=== PATIENT | female | born 2000 | race African-American/Black ===

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

== ENCOUNTER 2021-10-24 23:15 | Emergency (ER) | payer MEDICAID, OTHER ==
[~2021-10-24] VITALS: Ht 149.9 cm; Wt 77.2 kg
[~2021-10-24 23:15] MED LIST: CETI-89 PO
[2021-10-24 23:30] VITALS: BP 104/49
[2021-10-25 00:15] LABS: BASOPHILS % 0.3 % (0.0-2.0); HEMATOCRIT. 34.7 % (36.0-48.0); HEMOGLOBIN. 11.3 g/dL (12.0-16.0); LYMPHOCYTES % 16.1 % (20.0-50.0); MEAN CORPUSCULAR HEMOGLOBIN 30.9 pg (28.0-32.0); MEAN CORPUSCULAR VOLUME 94.8 fL (81.0-99.0); MEAN PLATELET VOLUME 8.5 fl (7.4-10.4); MONOCYTES % 5.5 % (2.0-8.0); NEUTROPHILS % 71.1 % (40.0-76.0); PLATELET 246 x1000/uL (130-400); RED BLOOD CELL COUNT 3.66 mill/uL (4.2-5.4); RED CELL DISTRIBUTION WIDTH 13.7 % (11.6-14.6)
[2021-10-25 00:23] LABS: CHLORIDE 105 mEq/L (98-107)
[2021-10-25] MEDS ORDERED: ACETAMINOPHEN 325MG TABLET PO STA (02:02)
== END 2021-10-25 04:07 | disposition left against medical advice (07) ==
LOC: ER 23:51
DX: O26.892 Other specified pregnancy related conditions, second trimester (principal); R20.0 Anesthesia of skin; Z3A.24 24 weeks gestation of pregnancy
CPT/HCPCS: 36415; 80048; 85025; 99283

== ENCOUNTER 2022-05-03 05:58 | Inpatient (IN) | payer MEDICAID, OTHER ==
[~2022-05-03] VITALS: Ht 172.7 cm; Wt 74.4 kg
[2022-05-03] MEDS ORDERED: METHYLPREDNISOLONE SOD SUCC 125 MG/2 ML VIAL IV STA (06:12)
[2022-05-03] MEDS ORDERED: SODIUM CHLORIDE 0.9% 1,000 ML IV ONE (07:45)
[2022-05-03] MEDS ORDERED: IPRATROPIUM BROMIDE (0.02%) 0.5MG/2.5ML NEB HHN STA (08:11)
[2022-05-03] MEDS ORDERED: ALBUTEROL (0.083%) 2.5MG/3ML NEB HHN STA (08:11)
[2022-05-03 12:11] LABS: HEMATOCRIT. 38.1 % (36.0-48.0); HEMOGLOBIN. 12.5 g/dL (12.0-16.0); MEAN CORPUSCULAR HEMOGLOBIN 29.8 pg (28.0-32.0); MEAN CORPUSCULAR VOLUME 91.2 fL (81.0-99.0); PLATELET 286 x1000/uL (130-400); RED BLOOD CELL COUNT 4.18 mill/uL (4.2-5.4); RED CELL DISTRIBUTION WIDTH 14.2 % (11.6-14.6)
[2022-05-03 12:29] LABS: PLATELET ESTIMATE NORMAL
[2022-05-03 12:30] LABS: CHLORIDE 105 mEq/L (98-107)
[2022-05-03 12:47] LABS: ETHANOL BLOOD < 10 mg/dL
[2022-05-03] MEDS ORDERED: ALBUTEROL (0.083%) 2.5MG/3ML NEB HHN ONE (13:15)
[2022-05-03 17:10] VITALS: BP 119/69
[2022-05-03] MEDS ORDERED: IPRATROPIUM/ALBUTEROL 0.5-3(2.5)MG/3ML NEB HHN PRN (17:30)
[2022-05-03] MEDS: IPRATROPIUM BROMIDE (0.02%) 0.5MG/2.5ML NEB HHN SCH ×2 (17:47→20:52)
[2022-05-03] MEDS ORDERED: BUDESONIDE 0.5MG/2ML NEB HHN SCH (18:00)
[2022-05-03] MEDS: METHYLPREDNISOLONE SOD SUCC 40 MG/ML VIAL IV SCH (18:07)
[2022-05-03] MEDS ORDERED: LEVOFLOXACIN 500MG PREMIX 100 ML IV SCH (18:30)
[2022-05-03 20:00] VITALS: BP 109/67
[2022-05-03] MEDS ORDERED: IPRATROPIUM/ALBUTEROL 0.5-3(2.5)MG/3ML NEB HHN SCH (20:00)
[2022-05-03] MEDS: OSELTAMIVIR 75MG CAPSULE PO SCH (21:18)
[2022-05-04] VITALS: BP 123/73
[2022-05-04] MEDS: IPRATROPIUM BROMIDE (0.02%) 0.5MG/2.5ML NEB HHN SCH ×2 (00:43→04:25)
[2022-05-04] MEDS: METHYLPREDNISOLONE SOD SUCC 40 MG/ML VIAL IV SCH ×2 (01:12→10:13)
[2022-05-04 04:00] VITALS: BP 103/62
[2022-05-04 08:00] VITALS: BP 102/59
[2022-05-04] MEDS: OSELTAMIVIR 75MG CAPSULE PO SCH (10:26)
[2022-05-04 12:00] VITALS: BP 102/64
== END 2022-05-04 14:45 | disposition left against medical advice (07) | DRG 133 ==
LOC: ER 05:58 → EDBEDREQ 10:49 → 8WST 13:33 → EDBEDREQTM 13:36 → EDBEDREQ 13:36 → ENRESERV 15:09
PROVIDERS: ADMIT Internal Medicine; ATTEND Internal Medicine
DX: J96.00 Acute respiratory failure, unspecified whether with hypoxia or hypercapnia (principal); J45.901 Unspecified asthma with (acute) exacerbation; J10.1 Influenza due to other identified influenza virus with other respiratory manifestations; F12.90 Cannabis use, unspecified, uncomplicated; Z20.822 Contact with and (suspected) exposure to COVID-19; Z53.29 Procedure and treatment not carried out because of patient's decision for other reasons; Z91.010 Allergy to peanuts
CPT/HCPCS: 36415; 71045; 80053; 80320; 84484; 85025; 85379; 87426; 87804; 93005; 99285; C9803; J1956; J2920; J2930; J7030; J7626; G0480

== ENCOUNTER 2023-10-16 23:25 | Emergency (ER) | payer MEDICAID, OTHER ==
[~2023-10-16] VITALS: Ht 167.6 cm; Wt 91.0 kg
[~2023-10-16 23:25] MED LIST changes: -CETI-89 PO; +FLUT1DIS3 INH; +P20 PO; +TC1U15 TP
[2023-10-16] MEDS: PREDNISONE 20MG TABLET PO ONE (23:50)
[2023-10-16] MEDS: ACETAMINOPHEN 325MG TABLET PO ONE (23:50)
[2023-10-17 00:04] VITALS: TEMP 97.8
[2023-10-17 00:49] VITALS: PULSE 116; RESP 17; O2SAT 96
[2023-10-17] MEDS: ALBUTEROL (0.083%) 2.5MG/3ML NEB HHN ONE (00:49)
[2023-10-17] MEDS: IPRATROPIUM BROMIDE (0.02%) 0.5MG/2.5ML NEB HHN STA (00:49)
[2023-10-17] MEDS ORDERED: P20 MT (00:50)
[2023-10-17] MEDS ORDERED: ALBU6.7H15 INH (00:50)
[2023-10-17 02:00] VITALS: BP 114/52; PULSE 99; RESP 16
[2023-10-17] MEDS ORDERED: P50 MT (17:07)
== END 2023-10-17 03:02 | disposition home or self-care (01) ==
LOC: ER 23:25
DX: J45.901 Unspecified asthma with (acute) exacerbation (principal)
CPT/HCPCS: 81025; 94640; 99285; J7512; Z7610 ×2

== ENCOUNTER 2023-10-17 15:19 | Emergency (ER) | payer OTHER ==
[~2023-10-17] VITALS: Ht 149.9 cm; Wt 75.0 kg
[~2023-10-17 15:19] MED LIST changes: +ALBU6.7H15 INH; +P20 MT
[2023-10-17 15:23] VITALS: BP 123/63; TEMP 98.7; O2SAT 96
[2023-10-17] MEDS: PREDNISONE 20MG TABLET PO STA (15:34)
[2023-10-17 16:08] VITALS: PULSE 100; RESP 20
[2023-10-17] MEDS: ALBUTEROL (0.083%) 2.5MG/3ML NEB HHN STA (16:08)
[2023-10-17] MEDS: IPRATROPIUM BROMIDE (0.02%) 0.5MG/2.5ML NEB HHN STA (16:09)
[2023-10-17] MEDS ORDERED: P50 MT (17:07)
== END 2023-10-17 17:55 | disposition home or self-care (01) ==
LOC: ER 15:19
DX: J45.901 Unspecified asthma with (acute) exacerbation (principal)
CPT/HCPCS: 71045; 94644; 99285; J7512; Z7610 ×3; 94640

== ENCOUNTER 2024-04-12 07:08 | Emergency (ER) | payer MEDICAID ==
[~2024-04-12] VITALS: Ht 149.9 cm; Wt 74.0 kg
[~2024-04-12 07:08] MED LIST changes: +P50 MT
[2024-04-12 08:27] VITALS: PULSE 100; RESP 18; O2SAT 94
[2024-04-12] MEDS: ALBUTEROL (0.083%) 2.5MG/3ML NEB HHN STA (08:27)
[2024-04-12] MEDS: IPRATROPIUM BROMIDE (0.02%) 0.5MG/2.5ML NEB HHN STA (08:27)
[2024-04-12 08:43] LABS: HEMATOCRIT. 37.9 % (36.0-48.0); HEMOGLOBIN. 12.5 g/dL (12.0-16.0); MEAN CORPUSCULAR HEMOGLOBIN 30.1 pg (28.0-32.0); MEAN CORPUSCULAR HGB CONC 33.1 g/dL (31.0-37.0); MEAN CORPUSCULAR VOLUME 91.1 fL (81.0-99.0); MEAN PLATELET VOLUME 7.8 fl (7.4-10.4); PLATELET 299 x1000/uL (130-400); RED BLOOD CELL COUNT 4.17 mill/uL (4.2-5.4); RED CELL DISTRIBUTION WIDTH 12.8 % (11.6-14.6); WHITE BLOOD COUNT 7.5 x1000/uL (4.5-11.0)
[2024-04-12 08:53] LABS: CHLORIDE 109 mEq/L (98-107); DIFFERENTIAL COMMENT 1; POTASSIUM 3.5 mEq/L (3.5-5.1); SODIUM 140 mEq/L (136-145)
[2024-04-12] MEDS: PREDNISONE 20MG TABLET PO STA (08:53)
[2024-04-12 08:54] LABS: CARBON DIOXIDE 26 mEq/L (21-32)
[2024-04-12 08:59] LABS: CREATININE 0.7 mg/dL (0.6-1.0); GLUCOSE 95 mg/dL (70-105); UREA NITROGEN BLOOD 13 mg/dL (9-23)
[2024-04-12 09:16] LABS: TROPONIN I HIGH SENSITIVITY < 4 ng/L (3.0-34)
[2024-04-12 10:02] LABS: PLATELET ESTIMATE NORMAL
[2024-04-12] MEDS ORDERED: P50 PO (10:26)
[2024-04-12 11:07] VITALS: BP 127/65; PULSE 92; RESP 18; TEMP 36.89184; O2SAT 96
== END 2024-04-12 11:09 | disposition home or self-care (01) ==
LOC: ER 07:08
DX: J45.901 Unspecified asthma with (acute) exacerbation (principal); Z79.899 Other long term (current) drug therapy; Z91.010 Allergy to peanuts
CPT/HCPCS: 80048; 85025; 84484; 36415; 71045; 93005; 94644; 99285; J7512; Z7610; 94640

== ENCOUNTER 2024-07-07 09:35 | Emergency (ER) | payer OTHER ==
[~2024-07-07] VITALS: Ht 149.9 cm; Wt 82.0 kg
[~2024-07-07 09:35] MED LIST changes: -P20 MT; -P20 PO; -P50 MT; +P50 PO
[2024-07-07 09:40] VITALS: BP 136/79; PULSE 104; RESP 14; TEMP 36.5; O2SAT 98; O2SAT 99
== END 2024-07-07 10:30 | disposition home or self-care (01) ==
LOC: ER 09:35
DX: I80.8 Phlebitis and thrombophlebitis of other sites (principal); J45.909 Unspecified asthma, uncomplicated; Z79.899 Other long term (current) drug therapy
CPT/HCPCS: 99281

== ENCOUNTER 2024-10-26 19:20 | Inpatient (IN) | payer OTHER ==
[~2024-10-26] VITALS: Ht 149.9 cm; Wt 88.9 kg
[2024-10-26] MEDS: IPRATROPIUM/ALBUTEROL 0.5-3(2.5)MG/3ML NEB HHN ONE ×2 (00:18→23:19)
[2024-10-26] MEDS: PREDNISONE 20MG TABLET PO ONE (20:13)
[2024-10-26 22:34] LABS: INFLUENZA TYPE A Presumptive Negative (Pres. Neg.)
[2024-10-26 22:35] LABS: INFLUENZA TYPE B Presumptive Negative (Pres. Neg.)
[2024-10-26 22:38] LABS: RESPIRATORY SYNCYTIAL VIRUS Not Detected (Not Detectd)
[2024-10-26 23:19] VITALS: PULSE 92; RESP 18; O2SAT 97
[2024-10-26] MEDS: HYDROCODONE/ACETAMINOPHEN 5/325MG TABLET PO ONE (23:47)
[2024-10-27] VITALS (8 sets, daily range): BP systolic 100–130; BP diastolic 40–102; PULSE 70–98; RESP 16–20; TEMP 36.3–36.7; O2SAT 92–98
[2024-10-27 00:05] LABS: HEMATOCRIT. 38.1 % (36.0-48.0); HEMOGLOBIN. 12.7 g/dL (12.0-16.0); MEAN CORPUSCULAR HEMOGLOBIN 29.4 pg (28.0-32.0); MEAN CORPUSCULAR HGB CONC 33.3 g/dL (31.0-37.0); MEAN CORPUSCULAR VOLUME 88.3 fL (81.0-99.0); MEAN PLATELET VOLUME 7.9 fl (7.4-10.4); PLATELET 340 x1000/uL (130-400); RED BLOOD CELL COUNT 4.31 mill/uL (4.2-5.4); RED CELL DISTRIBUTION WIDTH 13.4 % (11.6-14.6); WHITE BLOOD COUNT 11.6 x1000/uL (4.5-11.0)
[2024-10-27 00:08] LABS: DIFFERENTIAL COMMENT 1
[2024-10-27 00:13] LABS: CHLORIDE 105 mEq/L (98-107); SODIUM 137 mEq/L (136-145)
[2024-10-27 00:14] LABS: CALCIUM 10.2 mg/dL (8.7-10.4); CARBON DIOXIDE 23 mEq/L (21-32)
[2024-10-27 00:16] LABS: HCG SCREEN NEGATIVE
[2024-10-27 00:19] LABS: CREATININE 0.9 mg/dL (0.6-1.0); GLUCOSE 126 mg/dL (70-105); UREA NITROGEN BLOOD 10 mg/dL (9-23)
[2024-10-27 00:26] LABS: PLATELET ESTIMATE NORMAL
[2024-10-27] MEDS: BUDESONIDE 0.5MG/2ML NEB HHN SCH (06:48)
[2024-10-27] MEDS: IPRATROPIUM/ALBUTEROL 0.5-3(2.5)MG/3ML NEB HHN SCH (06:48)
[2024-10-27] MEDS: CETIRIZINE 10MG TABLET PO SCH (08:09)
[2024-10-27] MEDS: METHYLPREDNISOLONE SOD SUCC 40MG/ML (ACT-O-VIAL) IV SCH (08:10)
[2024-10-27] MEDS: TRIAMCINOLONE ACETONIDE 0.1 % OINT 15GM TOP SCH (11:31)
[2024-10-27] MEDS: MONTELUKAST SODIUM 10MG TABLET PO SCH (17:33)
[2024-10-27] MEDS ORDERED: P50 PO (17:37)
[2024-10-27] MEDS ORDERED: ALBU18HF2 IH (17:37)
[2024-10-28] VITALS: BP 104/56; PULSE 82; RESP 16; TEMP 36.2; O2SAT 96
[2024-10-28 04:00] VITALS: BP 112/69; PULSE 68; RESP 19; TEMP 37; O2SAT 92
[2024-10-28 04:25] VITALS: PULSE 80; RESP 18; O2SAT 96
[2024-10-28] MEDS: POLYVINYL ALCOHOL OPHTH DROPS 15ML BOTHEYE PRN (06:15)
[2024-10-28 08:00] VITALS: BP 113/62; PULSE 100; PULSE 106; RESP 18; TEMP 36.3; O2SAT 97
== END 2024-10-28 13:53 | disposition home or self-care (01) | DRG 113 ==
LOC: ER 19:20 → 7WST 10-27 01:13 → CMPBEDREQ 10-27 01:16 → ENRESERV 10-27 02:13
PROVIDERS: ADMIT Internal Medicine; ATTEND Internal Medicine
DX: J06.9 Acute upper respiratory infection, unspecified (principal); J45.901 Unspecified asthma with (acute) exacerbation; F12.90 Cannabis use, unspecified, uncomplicated; Z20.822 Contact with and (suspected) exposure to COVID-19; L30.9 Dermatitis, unspecified; Z91.010 Allergy to peanuts
CPT/HCPCS: 36415; 80048; 84703; 85025; 87420; 87426; 87804; 94070; 94640; 94664; 98960; 99285; A4606; J2919; J7512; J7626

== ENCOUNTER 2025-03-28 03:02 | Emergency (ER) | payer OTHER ==
[~2025-03-28] VITALS: Ht 149.9 cm; Wt 97.0 kg
[~2025-03-28 03:02] MED LIST changes: +ALBU18HF2 IH
[2025-03-28 03:04] VITALS: TEMP 97.9
[2025-03-28 03:21] VITALS: TEMP 36.8
[2025-03-28] MEDS: PREDNISONE 20MG TABLET PO ONE (03:47)
[2025-03-28] MEDS: ALBUTEROL (0.083%) 2.5MG/3ML NEB HHN ONE ×2 (04:00→06:03)
[2025-03-28 04:01] VITALS: PULSE 77; RESP 18; O2SAT 97
[2025-03-28] MEDS: IPRATROPIUM BROMIDE (0.02%) 0.5MG/2.5ML NEB HHN ONE (04:01)
[2025-03-28 04:08] LABS: BASOPHILS % 0.2 % (0.0-2.0); EOSINOPHILS % 12.9 % (0.0-5.0); HEMATOCRIT. 40.2 % (36.0-48.0); HEMOGLOBIN. 13.1 g/dL (12.0-16.0); LYMPHOCYTES % 16.6 % (20.0-50.0); MEAN PLATELET VOLUME 8.7 fl (7.4-10.4); MONOCYTES % 5.2 % (2.0-8.0); NEUTROPHILS % 65.1 % (40.0-76.0); PLATELET 362 x1000/uL (130-400); RED BLOOD CELL COUNT 4.56 mill/uL (4.2-5.4); RED CELL DISTRIBUTION WIDTH 14.2 % (11.6-14.6)
[2025-03-28 04:16] LABS: CREATININE 0.8 mg/dL (0.6-1.0); UREA NITROGEN BLOOD 12 mg/dL (9-23)
[2025-03-28 04:17] LABS: TROPONIN I HIGH SENSITIVITY < 4 ng/L (3.0-34)
[2025-03-28 04:26] LABS: HCG SCREEN NEGATIVE
[2025-03-28] MEDS ORDERED: P20 MT (05:05)
[2025-03-28] MEDS ORDERED: ALBU05 NEB (05:05)
[2025-03-28] MEDS ORDERED: ALBU90AE INH (05:05)
[2025-03-28 06:03] VITALS: PULSE 113; RESP 16; O2SAT 98
[2025-03-28 06:57] VITALS: BP 127/75; PULSE 96; RESP 18; O2SAT 99
== END 2025-03-28 07:02 | disposition home or self-care (01) ==
LOC: ER 03:23
DX: J45.901 Unspecified asthma with (acute) exacerbation (principal); R06.02 Shortness of breath; Z79.51 Long term (current) use of inhaled steroids; Z79.52 Long term (current) use of systemic steroids; Z91.010 Allergy to peanuts; F10.90 Alcohol use, unspecified, uncomplicated; Y90.9 Presence of alcohol in blood, level not specified; Z20.822 Contact with and (suspected) exposure to COVID-19
CPT/HCPCS: 80048; 84703; 85025; 84484; 36415; 71045; 94640; 93005; 99285; 87426; J7512; Z7610 ×3; 94070; 94664; 98960